=== PATIENT | female | born 1975 ===

== ENCOUNTER 2017-06-01 14:35 | Inpatient (IN) | payer OTHER ==
[~2017-06-01 14:35] MED LIST: FENTANYL 100 MCG/2 ML VIAL IV ONE; HOME MEDICATION LIST NEEDED 1 EA EACH MC ONE; LIDOCAINE HCL/PF 1% 30 ML VIAL SUBCUT PRN; MISOPROSTOL 200 MCG TABLET PO PRN; ONDANSETRON HCL 4 MG/2 ML VIAL IV PRN; OXYTOCIN/NORMAL SALINE 30 UNIT/500 ML BAG IV SCH
[2017-06-01] MEDS: FENTANYL 100 MCG/2 ML VIAL IV PRN ×4 (16:11→18:37)
--- NOTE | 2017-06-01 17:43 | PROGRESS NOTE:Antepartum ---
Assessment and Plan - Date of Encounter Date of Encounter: 06/01/17 (1) Multigravida of advanced maternal age in third trimester Status: Acute Assessment and plan: Now in early active labor, prefers minimal interventions. Admit for routine care and delivery. Current Visit: Yes - Time Spent With Patient Total time spent with greater than 50% in coordination of care (as documented) at patient's floor/unit and/or counseling patient: SECURITIES TRADER: Antepartum PN Subj - Subjective Interval history: Patient presents after several hours of prodromal labor at home with increased contractions. No SROM, some "show". complicated by advanced maternal age but no other issues. cfDNA consistent with 46 XY. Normal growth on ultrasounds. Prior term vaginal . Patient reports: ambulating normally, no nausea Antepartum ROS: contractions, movement normal, no loss of fluid, no abdominal pain, no headache, no shortness of breath, no swelling, no visual changes SECURITIES TRADER: Antepartum PN Obj Exam - Latest Vital Signs and I&O Latest Vital Signs/I&O: Vital Signs Temp 36.5 C 06/01/17 15:00 Pulse 87 06/01/17 15:00 Resp 20 06/01/17 15:00 BP 117/66 06/01/17 15:00 Pulse Ox 99 06/01/17 15:00 Intake & Output 05/31/17 06/01/17 06/01/17 17:59 05:59 17:59 Weight 76.677 kg Other: Urine Appearance Clear Urine Color Yellow Voiding Method Toilet - Exam Heart Monitor: category I Heart Rhythm: Present: regular Extremities: Absent: tenderness Abdomen: Present: soft Cervical Dilatation Degree: 4 Cervical Effacement Percentage: 100 Station: -1 Additional Comments: per RN exam on admission at 1500
[2017-06-01] MEDS: LACTATED RINGERS 1,000 ML IV SCH ×4 (18:52→23:39)
[2017-06-01 19:28] LABS: EOSINOPHILS 0.1 % (0.0-6.0); HEMATOCRIT 38.7 % (36.0-48.0); HEMOGLOBIN 12.9 g/dL (12.0-16.0); LYMPHOCYTES 10.1 % (20.0-40.0); LYMPHOCYTES# 1.3 X 10^3uL (0.8-3.8); MEAN CELL VOLUME 86.9 fL (80.0-100.0); MEAN CORPUS. HGB CONCENTRATION 33.3 g/dL (32.0-36.0); MEAN PLATELET VOLUME 9.1 fL (7.4-10.4); MONOCYTES# 0.6 X 10^3uL (0.2-1.0); NEUTROPHILS 84.8 % (54.0-75.0); NEUTROPHILS# 10.7 X 10^3uL (2.6-6.7); PLATELET COUNT 235 X 10^3uL (130-440); RED BLOOD COUNT 4.45 X 10^6uL (4.20-6.10); RED CELL DISTRIBUTION WIDTH 13.3 % (11.5-14.5); WHITE BLOOD COUNT 12.6 X 10^3uL (3.9-10.7)
[2017-06-01] MEDS ORDERED: NORMAL SALINE FLUSH 20 ML ONE (19:56)
[2017-06-01] MEDS ORDERED: ROPIVACAINE HCL IN 0.9%NACL/PF 120 MG/60 ML SYRINGE ONE (19:56)
[2017-06-01] MEDS ORDERED: EPHEDrine SULFATE 50 MG/ML VIAL ONE (19:56)
[2017-06-01] MEDS ORDERED: BUPIVACAINE HCL/PF 0.5% 30 ML VIAL ONE (19:56)
--- NOTE | 2017-06-01 20:20 | PROGRESS NOTE:Antepartum ---
Assessment and Plan - Date of Encounter Date of Encounter: 06/01/17 (1) Term Problem details: Evaluation for rupture of membranes Status: Acute Assessment and plan: Epidural went in easily. Expect pain relief soon. Consider AROM. CAT I strip. Current Visit: No (2) Multigravida of advanced maternal age in third trimester Status: Acute Current Visit: Yes - Time Spent With Patient Total time spent with greater than 50% in coordination of care (as documented) at patient's floor/unit and/or counseling patient: DIRECTOR OF FRONT OFFICE: Antepartum PN Subj - Subjective Interval history: Patient no longer coping with pain and would like RAZA. Baby moving well. CTX q 3-5. Patient reports: ambulating normally, no nausea Antepartum ROS: vaginal bleeding (scant), contractions, movement normal, no loss of fluid, no abdominal pain, no headache, no shortness of breath, no swelling, no visual changes DIRECTOR OF FRONT OFFICE: Antepartum PN Obj Exam - Latest Vital Signs and I&O Latest Vital Signs/I&O: Vital Signs Temp 36.2 C L 06/01/17 19:20 Pulse 73 06/01/17 19:20 Resp 18 06/01/17 19:20 BP 123/71 06/01/17 19:20 Pulse Ox 100 06/01/17 19:20 Intake & Output 06/01/17 06/01/17 06/02/17 05:59 17:59 05:59 Weight 76.677 kg Other: Urine Appearance Clear Urine Color Yellow Voiding Method Toilet - Exam Heart Monitor: category I Heart Rhythm: Present: regular Extremities: Absent: tenderness Abdomen: Present: soft Cervical Dilatation Degree: 5 Cervical Effacement Percentage: 100 Station: -1
[2017-06-01] MEDS: PHENYLEPHRINE HCL 10,000 MCG/ML VIAL ONE ×2 (20:30→23:21)
[2017-06-01 20:54] LABS: ANTIBODY SCREEN NEGATIVE
[2017-06-01] MEDS ORDERED: FENTANYL 100 MCG/2 ML VIAL ONE (20:56)
[2017-06-01] MEDS ORDERED: PHENYLEPHRINE HCL 10,000 MCG/ML VIAL IV PRN (20:57)
[2017-06-01] MEDS ORDERED: METOCLOPRAMIDE HCL 10 MG/2 ML VIAL IV PRN ×2 (20:57→23:59)
[2017-06-01] MEDS ORDERED: EPHEDrine SULFATE 50 MG/ML VIAL IV PRN (20:57)
[2017-06-01] MEDS ORDERED: NALBUPHINE HCL 10 MG/ML AMP IV PRN (20:57)
--- NOTE | 2017-06-01 21:55 | PROGRESS NOTE:Antepartum ---
Assessment and Plan - Date of Encounter Date of Encounter: 06/01/17 (1) Term Problem details: Evaluation for rupture of membranes Status: Acute Assessment and plan: Epidural providing excellent relief. FHT's improved. Continue IVF bolus. Current Visit: No (2) Multigravida of advanced maternal age in third trimester Status: Acute Current Visit: Yes - Time Spent With Patient Total time spent with greater than 50% in coordination of care (as documented) at patient's floor/unit and/or counseling patient: INTERPRETER FOR THE DEAF: Antepartum PN Subj - Subjective Interval history: Patient comfortable with RAZA. Had episode of sustained bradycardia for 4 minutes that responded to IVF and 1 doses of ephedra. Recovered to 110's then recurred x 2 minutes and responded to second dose of Ephedra. HR then increased to 170's and Mom's BP still low so third dose given now FHT's 140-150' s. Minimal variability but Category II with no significant decels and no lates. Mohamud cath placed and urine dark so administering a second IVF bolus. AROM at 7 cm of clear fluid. Infant is OT with asynclitic position. Anticipate continued improvements. Patient reports: pain well controlled, no nausea Antepartum ROS: vaginal bleeding (scant), contractions (q3), loss of fluid ( AROM of clear fluid at approx 9:30), movement normal, no abdominal pain, no headache, no shortness of breath, no swelling, no visual changes INTERPRETER FOR THE DEAF: Antepartum PN Obj Exam - Latest Vital Signs and I&O Latest Vital Signs/I&O: Vital Signs Temp 36.3 C L 06/01/17 20:30 Pulse 85 06/01/17 21:05 Resp 18 06/01/17 21:05 BP 99/63 06/01/17 21:05 Pulse Ox 100 06/01/17 21:05 Intake & Output 06/01/17 06/01/17 06/02/17 05:59 17:59 05:59 Intake Total 1000 Balance 1000 Weight 76.677 kg Intake: IV 1000 Lr 1000 ml Bag 1,000 ml @ 1000 999 mls/hr IV CONT GRISEL Rx#:[id number] Other: Urine Appearance Clear Urine Color Yellow Voiding Method Toilet Toilet - Exam Heart Monitor: category II (see subjective for narrative) Heart Rhythm: Present: regular Extremities: Absent: tenderness Abdomen: Present: soft Cervical Dilatation Degree: 7 Cervical Effacement Percentage: 100 Station: -1 - Lab Labs: Laboratory Last Values WBC 12.6 X 10^3uL (3.9-10.7) H 06/01/17 19:05 RBC 4.45 X 10^6uL (4.20-6.10) 06/01/17 19:05 Hgb 12.9 g/dL (12.0-16.0) 06/01/17 19:05 Hct 38.7 % (36.0-48.0) 06/01/17 19:05 MCV 86.9 fL (80.0-100.0) 06/01/17 19:05 MCH 29.0 pg (29.0-35.0) 06/01/17 19:05 MCHC 33.3 g/dL (32.0-36.0) 06/01/17 19:05 RDW 13.3 % (11.5-14.5) 06/01/17 19:05 Plt Count 235 X 10^3uL (130-440) 06/01/17 19:05 MPV 9.1 fL (7.4-10.4) 06/01/17 19:05 Neutrophils % 84.8 % (54.0-75.0) H 06/01/17 19:05 Lymphocytes % 10.1 % (20.0-40.0) L 06/01/17 19:05 Eosinophils % 0.1 % (0.0-6.0) 06/01/17 19:05 Basophils % 0.0 % (0.0-2.0) 06/01/17 19:05 Neutrophils # 10.7 X 10^3uL (2.6-6.7) H 06/01/17 19:05 Lymphocytes # 1.3 X 10^3uL (0.8-3.8) 06/01/17 19:05 Monocytes 5.0 % (2.0-10.0) 06/01/17 19:05 Monocytes # 0.6 X 10^3uL (0.2-1.0) 06/01/17 19:05 Eosinophils # 0.0 X 10^3uL (0.0-0.4) 06/01/17 19:05 Basophils # 0.0 X 10^3uL (0.0-0.1) 06/01/17 19:05 Antibody Screen Negative 06/01/17 19:05
--- NOTE | 2017-06-01 23:49 | PROGRESS NOTE:Antepartum ---
Assessment and Plan - Date of Encounter Date of Encounter: 06/01/17 (1) Term Problem details: Evaluation for rupture of membranes Status: Acute Assessment and plan: Epidural providing excellent relief. FHT's improved. Continue expectant management. Current Visit: No (2) Multigravida of advanced maternal age in third trimester Status: Acute Current Visit: Yes - Time Spent With Patient Total time spent with greater than 50% in coordination of care (as documented) at patient's floor/unit and/or counseling patient: PROJECT PORTFOLIO ANALYST: Antepartum PN Subj - Subjective Interval history: Patient comfortable with RAZA. Ctx continue q 3-5. No significant recurrent bradycardia. Occasional variables. Received 1 more dose of ephedra. Patient reports: pain well controlled, no nausea Antepartum ROS: vaginal bleeding (scant), contractions (q3), loss of fluid ( AROM of clear fluid at approx 9:30), movement normal, no abdominal pain, no headache, no shortness of breath, no swelling, no visual changes PROJECT PORTFOLIO ANALYST: Antepartum PN Obj Exam - Latest Vital Signs and I&O Latest Vital Signs/I&O: Vital Signs Temp 36.2 C L 06/01/17 23:30 Pulse 76 06/01/17 23:30 Resp 16 06/01/17 23:30 BP 103/54 06/01/17 23:30 Pulse Ox 98 06/01/17 23:30 Intake & Output 06/01/17 06/01/17 06/02/17 05:59 17:59 05:59 Intake Total 5300 Output Total 200 Balance 5100 Weight 76.677 kg Intake: IV 5000 Lr 1000 ml Bag 1,000 ml @ 3000 999 mls/hr IV CONT GRISEL Rx#:[id number] Right Forearm 2000 Oral 300 Output: Urine 200 Uretheral (Mohamud) 200 Other: Urine Appearance Clear Urine Color Yellow Uretheral (Mohamud) Yellow Voiding Method Toilet Toilet - Exam Heart Monitor: category II (150-160 with accels but only mild variability) Heart Rhythm: Present: regular Extremities: Absent: tenderness Abdomen: Present: soft Cervical Dilatation Degree: 9 Cervical Effacement Percentage: 100 Station: -1 - Lab Labs: Laboratory Last Values WBC 12.6 X 10^3uL (3.9-10.7) H 06/01/17 19:05 RBC 4.45 X 10^6uL (4.20-6.10) 06/01/17 19:05 Hgb 12.9 g/dL (12.0-16.0) 06/01/17 19:05 Hct 38.7 % (36.0-48.0) 06/01/17 19:05 MCV 86.9 fL (80.0-100.0) 06/01/17 19:05 MCH 29.0 pg (29.0-35.0) 06/01/17 19:05 MCHC 33.3 g/dL (32.0-36.0) 06/01/17 19:05 RDW 13.3 % (11.5-14.5) 06/01/17 19:05 Plt Count 235 X 10^3uL (130-440) 06/01/17 19:05 MPV 9.1 fL (7.4-10.4) 06/01/17 19:05 Neutrophils % 84.8 % (54.0-75.0) H 06/01/17 19:05 Lymphocytes % 10.1 % (20.0-40.0) L 06/01/17 19:05 Eosinophils % 0.1 % (0.0-6.0) 06/01/17 19:05 Basophils % 0.0 % (0.0-2.0) 06/01/17 19:05 Neutrophils # 10.7 X 10^3uL (2.6-6.7) H 06/01/17 19:05 Lymphocytes # 1.3 X 10^3uL (0.8-3.8) 06/01/17 19:05 Monocytes 5.0 % (2.0-10.0) 06/01/17 19:05 Monocytes # 0.6 X 10^3uL (0.2-1.0) 06/01/17 19:05 Eosinophils # 0.0 X 10^3uL (0.0-0.4) 06/01/17 19:05 Basophils # 0.0 X 10^3uL (0.0-0.1) 06/01/17 19:05 Antibody Screen Negative 06/01/17 19:05
--- NOTE | 2017-06-02 02:30 | PROCEDURE NOTE: Vaginal Del ---
OB Procedure Vaginal Delivery - Vaginal Delivery Estimated Gestational Age (weeks): 39 Delivery Presentation: vertex Delivery Position: OA Heart Monitor: category I Intrapartum Events: extend. bradycardia (at 7 cm due to mild maternal hypotension but recovered to CAt II and subsequently CAt I strip.) Delivery Induction: none Delivery Augmentation: rupture of membranes (at 9:30 pm 4 hours PTD, Clear fluid ) Amniotic Fluid: clear Delivery Monitor: external FHT Delivery Method: Shoulders: without difficulty Placenta delivered: yes Delivery Placenta: spontaneous (5 min after infant) Delivery Cord: 3 Vessels Nuchal Cord # of Loops: 0 Cord clamped: Yes Cord blood obtained: No (Mom AB+) Episiotomy: none Delivery Laceration: other (midline vaginal), 1st degree Suture Type for Laceration Repair: 3.0 Vicryl at 1 minute: 8 at 5 minutes: 9 Infant Gender: Male Estimate Blood Loss Delivery: 300cc Anesthesia: Epidural Patient tolerated procedure: well, no complications Delivery Complications: Present: none Additional comments: 41 yo at 39 4/7 presented in early labor this afternoon. First stage lasted 11 hours. She initially had a CAT I strip but after RAZA placed had drop in BP from 120's to 90's and subsequent bradycardia to 90's for 4 min. Partial recover for 90 sec and recurrence x 2 minutes. She received a total of 3 doses of ephedrine given as well as IVF and O2 and change of position. Post bradycardia FHT's 170-180's then came down with CAtegory II strip and only occasional variables. She received several doses of ephedrine for low BP in 90 's throughout labor but tolerated remaining labor well. Stage II lasted 15 minutes. She pushed with 2 contractions and delivered viable vigorous male in straight OA position. Category I strip for Second stage. Placed on Mom's abdomen for dry and stim. Cord clamp x 2 and cut by me as father declined at about 2 min post delivery of baby. Stage III followed in 5 minutes with spontaneous delivery of intact placenta with 3VC and marginal insertion. 1st degree midline vaginal lac repaired with 3.0 vicryl. EBL 300. Mom AB+, RI, Ab neg. GBS Neg.
[2017-06-02] MEDS ORDERED: MAGNESIUM HYDROXIDE 30 ML UDC PO PRN (03:02)
[2017-06-02] MEDS ORDERED: BENZOCAINE/LANOLIN/ALOE 1 SPRAY BOTTLE TP PRN (03:02)
[2017-06-02] MEDS ORDERED: HC ACETATE/PRAMOXINE HCL FOAM 1 APPLIC APP RECTAL PRN (03:02)
[2017-06-02] MEDS ORDERED: ACETAMINOPHEN/CODEINE 300/30MG 1 TAB TABLET PO PRN (03:02)
[2017-06-02] MEDS ORDERED: LANOLIN CREAM 1 APP/7 GM TUBE TOPICAL PRN (03:02)
[2017-06-02] MEDS ORDERED: hydroCODone/IBUPR 7.5/200 MG 1 TAB TABLET PO PRN (03:02)
[2017-06-02] MEDS ORDERED: DIPHENHYDRAMINE 25 MG CAPSULE PO PRN (03:02)
[2017-06-02] MEDS ORDERED: WITCH HAZEL 1 EACH MED..PAD TOPICAL PRN (03:02)
[2017-06-02] MEDS: IBUPROFEN 600 MG TABLET PO PRN ×4 (03:14→21:07)
[2017-06-02] MEDS: DOCUSATE SODIUM 100 MG CAPSULE PO SCH ×2 (04:42→14:54)
[2017-06-02] MEDS ORDERED: BENZOCAINE/LANOLIN/ALOE 1 SPRAY BOTTLE TOPICAL PRN (05:00)
[2017-06-02 09:38] VITALS: RESP 18
--- NOTE | 2017-06-02 13:51 | PROGRESS NOTE:Vaginal Delivery ---
Assessment and Plan - Date of Encounter Date of Encounter: 06/02/17 (1) care following vaginal delivery Status: Acute Assessment and plan: Doing well, plan routine PP care. Current Visit: Yes - Time Spent With Patient Total time spent with greater than 50% in coordination of care (as documented) at patient's floor/unit and/or counseling patient: ICE SKATING COACH: Vag Del PN Subjective Post- Day: 0 Patient reports: appetite normal, voiding normally, pain well controlled, ambulating normally, no nausea [place]: doing well, nursing well ICE SKATING COACH: Vag Del PN Obj Exam - Latest Vital Signs and I&O Latest Vital Signs/I&O: Vital Signs Temp 36.1 C L 06/02/17 09:37 Pulse 90 06/02/17 09:37 Resp 18 06/02/17 09:37 BP 98/52 06/02/17 09:37 Pulse Ox 99 06/02/17 09:37 Intake & Output 06/01/17 06/02/17 06/02/17 17:59 05:59 17:59 Intake Total 8100 Output Total 2700 1500 Balance 5400 -1500 Weight 76.677 kg Intake: IV 7100 Lr 1000 ml Bag 1,000 ml @ 3600 999 mls/hr IV CONT GRISEL Rx#:[id number] Pitocin/Ns 30 Unit/500 ml 500 30 unit IV CONT GRISEL Rx#: [id number] Right Forearm 3000 Oral 1000 Output: Urine 2700 1500 Uretheral (Mohamud) 1100 Other: Urine Appearance Clear Clear Clear Cloudy Urine Color Yellow Light Eunice Murphy Uretheral (Mohamud) Yellow Voiding Method Toilet Toilet Toilet # Voids 1 - Exam Heart Rhythm: Present: regular Extremities: Absent: tenderness Abdomen: Present: soft. Absent: tenderness Uterus: Absent: firm, non tender - Lab Labs: Laboratory Last Values WBC 12.6 X 10^3uL (3.9-10.7) H 06/01/17 19:05 RBC 4.45 X 10^6uL (4.20-6.10) 06/01/17 19:05 Hgb 12.9 g/dL (12.0-16.0) 06/01/17 19:05 Hct 38.7 % (36.0-48.0) 06/01/17 19:05 MCV 86.9 fL (80.0-100.0) 06/01/17 19:05 MCH 29.0 pg (29.0-35.0) 06/01/17 19:05 MCHC 33.3 g/dL (32.0-36.0) 06/01/17 19:05 RDW 13.3 % (11.5-14.5) 06/01/17 19:05 Plt Count 235 X 10^3uL (130-440) 06/01/17 19:05 MPV 9.1 fL (7.4-10.4) 06/01/17 19:05 Neutrophils % 84.8 % (54.0-75.0) H 06/01/17 19:05 Lymphocytes % 10.1 % (20.0-40.0) L 06/01/17 19:05 Eosinophils % 0.1 % (0.0-6.0) 06/01/17 19:05 Basophils % 0.0 % (0.0-2.0) 06/01/17 19:05 Neutrophils # 10.7 X 10^3uL (2.6-6.7) H 06/01/17 19:05 Lymphocytes # 1.3 X 10^3uL (0.8-3.8) 06/01/17 19:05 Monocytes 5.0 % (2.0-10.0) 06/01/17 19:05 Monocytes # 0.6 X 10^3uL (0.2-1.0) 06/01/17 19:05 Eosinophils # 0.0 X 10^3uL (0.0-0.4) 06/01/17 19:05 Basophils # 0.0 X 10^3uL (0.0-0.1) 06/01/17 19:05 Antibody Screen Negative 06/01/17 19:05
[2017-06-02 21:20] VITALS: O2SAT 98
[2017-06-03] MEDS: IBUPROFEN 600 MG TABLET PO PRN (02:55)
[2017-06-03] MEDS: DOCUSATE SODIUM 100 MG CAPSULE PO SCH (02:55)
[2017-06-03 06:03] LABS: HEMATOCRIT 34.6 % (36.0-48.0); HEMOGLOBIN 11.3 g/dL (12.0-16.0)
[2017-06-03 08:40] VITALS: BP 123/74; PULSE 93; TEMP 97.7
--- NOTE | 2017-06-03 11:04 | DC SUMMARY: Obstetrical/GYN ---
Discharge Summary: Surg/OB Provider: Date of Admission: 06/01/17 Admitting Provider: OMID OAKES MD Attending Provider: OMID OAKES MD Discharging Provider: OMID OAKES MD Primary Care Provider: Discharge Date: 06/03/17 - Diagnosis (1) care following vaginal delivery Status: Acute Hospital Course: Ms. DESAI is a 41 year old female who presented after several hours of prodromal labor at home with increased contractions. No SROM, some "show". complicated by advanced maternal age but no other issues. cfDNA consistent with 46 XY. Normal growth on ultrasounds. Prior term vaginal . Epidural placed per her request. She had an obstetrically assisted vaginal and an unremarkable course. She is discharged to home in good condition. Discharge - Patient/Caregiver Discharge Instructions Activity Level: Pelvic rest Diet: Regular Additional Instructions: Omid Oakes M.D. INSTRUCTIONS 1. Please make an appointment to see me for a checkup two weeks and six weeks after delivery. Call the clinic to make these appointments. Do not hesitate to call me, or my nurse, with any questions or problems regarding gynecological care or breast feeding. 2. It would be best for you to restrict your activities to caring for yourself and your baby for the first week. As you feel up to it, you may increase your activity. Use your own judgment, listen to your body, and take frequent short rests as you become tired. 3. If needed you will receive a prescription for pain pills upon hospital discharge. Generally ibuprofen is adequate after vaginal delivery for discomfort. If needed, take as directed. If necessary, you may drive a car a short distance after 1 -2 weeks. Use good judgment. Do not drive a car or operate machinery as long as you are taking narcotic pain medication. 4. You may climb stairs but try to make the trip worthwhile. Do not walk up and down excessively. 5. If you are breast feeding, wear a well supporting bra day and night (a maternity or sports bra). Use the lanolin or isai cream provided to you after each feeding. It does not need to be washed off before you feed your baby. Do not use soap on your nipples; wash them with clear water. Wash your hands before you handle your baby or your breasts. Do not allow your nipples to become caked with milk or to be constantly wet with milk that leaks between feedings. 6. To help prevent complications with : a)Ensure good position and latch b)Ensure feeding on demand c)Empty breasts fully d)Use hand expression to help relieve fullness e)Expose breast engorgement to warm water by shower or basin f)Call if unrelieved or if you have questions Janel Ortez : Sonal Rosario, ___[phone] Valentino Tineo, ___ 7. If you are not breast feeding, wear a well supporting bra day and night for at least two full weeks. Should your breasts become full, apply ice packs and avoid stimulation to your breasts. This full feeling may last for 2-3 days and then gradually subside. 8. Start your Kegel exercises at home. Walking should start immediately but limit your normal exercise program until after your six-week check up. 9. Bleeding may be heavier after activity. If your bleeding does not slow down after resting, please notify me immediately. 10. Sitting in three inches of warm water with Epsom salt for 15 minutes, three times per day will help ease the discomfort from your episiotomy. The episiotomy will be healed in about three weeks. The stitches will dissolve. Small superficial skin separations should not cause anxiety, as they heal quickly. 11. Vaginal discharge is usually bright red for two to four days following delivery, and then becomes pinkish or dark red in four to ten days. The vaginal flow will gradually subside. You may have intermittent episodes of increased bleeding and may pass a few clots. The bleeding should not be heavier than a normal period for more than a few days. Use only mini or maxi pads. Vaginal discharge may last four to eight weeks. Call me if bleeding seems excessive. No tampons, douching or intercourse until your bleeding stops. 12. Eat a well-balanced diet. You should drink 6-8 glasses of fluid per day and eat the same kind of diet you were on during your . Fresh fruits, green leafy vegetables, bran cereals and whole wheat breads should be eaten to prevent constipation. If necessary, stool softeners may be obtained at the pharmacy without a prescription. Use as directed. Milk of Magnesia may be used for constipation. 13. Continue taking your vitamins and iron for one month. If you are breast feeding, continue taking your vitamins as long as you breast feed. If you are breast feeding be very cautious about taking medications not prescribed by me. Always inform your physician that you are breast feeding before he or she prescribes any medication for you. 14. Report any vomiting or fever above 100.5 degrees. It is not necessary to take your temperature daily, but if you feel like you have a fever, take your temperature and call me if necessary. 15. I can be reached through the hospital charge nurse ([phone]) or the hospital quilting machine operator ([phone]). If no one answers, please leave your name and number and expect a return phone call in 30 minutes. Omid Oakes M.D. Follow up: OMID OAKES MD [ACTIVE (Staff Physician)] - 2 Weeks Overall discharge status: stable Home Medications: Ibuprofen [Motrin] 2 - 3 tab PO Q4H PRN #30 tablet PRN Reason: pain Disposition: HOME, SELF-CARE Obstetrical/INSURANCE MANAGER Discharge Exam - Latest Vital Signs and I&O Latest Vital Signs/I&O: Vital Signs Temp 36.5 C 06/03/17 08:39 Pulse 93 H 06/03/17 08:39 Resp 18 06/03/17 08:39 BP 123/74 06/03/17 08:39 Pulse Ox 98 06/03/17 02:00 Intake & Output 06/02/17 06/03/17 06/03/17 17:59 05:59 17:59 Output Total 1500 Balance -1500 Output: Urine 1500 Other: Urine Appearance Clear Cloudy Urine Color Murphy Voiding Method Toilet Toilet - Exam Heart Rhythm: Present: regular Extremities: Absent: tenderness Abdomen: Present: soft. Absent: tenderness Uterus: Absent: firm, non tender Discharge Summary Data - Medication History Medication History: Home Medications Vit W-Ca,Fe,FA(<1 mg) [ Vitamins] 1 each PO DAILY 06/01/17 Inpatient Medications 06/02/17 03:02 Acetaminophen/Codeine 300/30Mg [Tylenol with Codeine #3] 1 - 2 tab PO Q3H PRN Diphenhydramine [Benadryl] 50 mg PO HS PRN Docusate Sodium [Colace] 100 mg PO Q12H Hc Acetate/Pramoxine HCl Foam [Proctofoam-Hc Foam] 1 applic RECTAL PRN PRN Ibuprofen [Motrin] 600 mg PO Q6H PRN Lanolin Cream [Lansinoh] 1 valeriy TOPICAL PRN PRN Magnesium Hydroxide [Milk of Magnesia] 30 ml PO PRN PRN Witch Guera [Tucks Take-Alongs] 1 each TOPICAL PRN PRN hydroCODone/IBUPR 7.5/200 MG [VICOPROFEN 7.5mg/200mg] 1 tab PO Q4H PRN oxyCODONE HCL IR [Oxy Ir] 5 mg PO Q3H PRN 06/02/17 05:00 Benzocaine/Lanolin/Aloe [Dermoplast [place]] 1 spray TOPICAL PRN PRN Procedures and tests throughout hospitalization: Completed Lab Orders 06/01/17 19:05 ANTIBODY SCREEN [HEM] Stat CBC AUTO DIF, MDIF/RMOR IF IND [HEM] Stat 06/03/17 05:50 HGB & HCT PANEL [HEM] Stat Pending Orders 05/14/17 13:05 Admit: Inpatient Routine VTE Prophylaxis Scoring/ Ordering Routine Resuscitation Status Routine Straight Cath PRN 06/01/17 20:57 D/C epidural post delivery ONCE 06/02/17 03:02 May shower TOLERATED Post Assessment PER PROTOCOL Vital Signs ROUTINE VITALS (Q4H) Acetaminophen/Codeine 300/30Mg [Tylenol with Codeine #3] 1 - 2 tab PO Q3H PRN Diphenhydramine [Benadryl] 50 mg PO HS PRN Docusate Sodium [Colace] 100 mg PO Q12H Hc Acetate/Pramoxine HCl Foam [Proctofoam-Hc Foam] 1 applic RECTAL PRN PRN Ibuprofen [Motrin] 600 mg PO Q6H PRN Lanolin Cream [Lansinoh] 1 valeriy TOPICAL PRN PRN Magnesium Hydroxide [Milk of Magnesia] 30 ml PO PRN PRN Witch Guera [Tucks Take-Alongs] 1 each TOPICAL PRN PRN hydroCODone/IBUPR 7.5/200 MG [VICOPROFEN 7.5mg/200mg] 1 tab PO Q4H PRN oxyCODONE HCL IR [Oxy Ir] 5 mg PO Q3H PRN 06/02/17 05:00 Benzocaine/Lanolin/Aloe [Dermoplast [place]] 1 spray TOPICAL PRN PRN 06/02/17 Breakfast Regular [DIET] 06/03/17 Lunch Special Meal (NLC) Labs on day of discharge: Labs from last 24 hours 06/03/17 05:50 Hgb 11.3 L Hct 34.6 L
== END 2017-06-03 13:30 | disposition home or self-care (01) | DRG 780 ==
LOC: NLCPRO 14:35 → NLC 14:40
PROVIDERS: ADMIT Obstetrics & Gynecology; ATTEND Obstetrics & Gynecology
PROC: 10E0XZZ Delivery of Products of Conception, External Approach (ICD-10-PCS; principal; 2017-06-01)
PROC: 0HQ9XZZ Repair Perineum Skin, External Approach (ICD-10-PCS; principal; 2017-06-01)
DX: O47.1 False labor at or after 37 completed weeks of gestation (principal); O76 Abnormality in fetal heart rate and rhythm complicating labor and delivery; O70.0 First degree perineal laceration during delivery; Z37.0 Single live birth
CPT/HCPCS: 36415; 85014; 85018; 85025; 86850; J2370; J2405; J2795; J3010; J7120